=== PATIENT | male | born 1995 | race Caucasian/White ===

== ENCOUNTER → 2020-07-18 15:10 | Outpatient (CLI) | payer SELFPAY ==
--- NOTE | ~2020-07-18 | US_ITS ---
EXAMINATION: US soft tissue head and neck DATE: 07/18/2020 15:42 INDICATION: Mass at the posterior neck. TECHNIQUE: Multiple grayscale and Doppler ultrasound images of the posterior neck were obtained. 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 IMPRESSION: 1. No abnormal mass or lymphadenopathy in the patient's area of concern in the posterior neck. Reviewed, dictated and finalized at location B. [employer]
== END ==
PROVIDERS: PCP Family Medicine; Visit Provider Family Medicine
DX: R22.9 Localized swelling, mass and lump, unspecified (principal)
CPT/HCPCS: 76536

== ENCOUNTER → 2020-07-31 14:51 | Outpatient (CLI) | payer SELFPAY ==
--- NOTE | ~2020-07-31 | MR_ITS ---
EXAMINATION: MR brain/brain stem wo/w con DATE: 07/31/2020 15:43 INDICATION: Disorder of pituitary gland. TECHNIQUE: Magnetic resonance imaging (MRI) of the brain and brainstem was performed without and with 20 mL MultiHance intravenous contrast. Whole-brain sequences included sagittal T1-weighted FSE, axia l diffusion-weighted FS EPI, axial T2*-weighted GRE, axial T2-weighted FLAIR Propeller, and axial T2- weighted Propeller. Small [id number] sequences included sagittal and coronal T1-weighted FSE cente red at the pituitary. Postcontrast sequences included small jmljt-ye-curl coronal T1-weighted FSE in a time course and sagittal T1-weighted FSE and whole-brain axial T1-weighted FSE. Apparent diffusion coefficient (ADC) maps were created. COMPARISON: None. FINDINGS: The cerebellar tonsils extend 5 mm inferior to foramen magnum, consistent with Chiari I mal formation. The pituitary is normal in size with height of 6 mm and concave superior margin. There is a prominent right perihippocampal fissure cyst. There is no intracranial hemorrhage, acute infarction , or abnormal intracranial mass lesion. The ventricles are normal in size. The paranasal sinuses are clear. The orbits are normal. There is a trace right mastoid effusion. IMPRESSION: 1. Normal pituitary. 2. Chiari I malformation. Reviewed, dictated and finalized at location A. E TIER
[2020-07-31 15:17] LABS: Estimated Glomerular Filt Rate > 60
== END ==
PROVIDERS: PCP Family Medicine; Visit Provider Family Medicine
DX: E23.6 Other disorders of pituitary gland (principal); G93.5 Compression of brain
CPT/HCPCS: 70553; A9577